=== PATIENT | male | born 2000 | race Caucasian/White ===

== ENCOUNTER 2019-02-07 00:54 | Emergency (ER) | payer BC ==
--- NOTE | 2019-02-07 01:15 | ED ---
Substance Abuse/Use - HPI Summary HPI Summary: The pt is a 18 yr old male [place] [facility] [place]/o EtOH abuse beginning several hours [employer]. Pt states that he was drinking at a fraternity green party in [facility]. He notes that he is a [employer] student. LEVEL 5 CAVEAT. Full Hx unobtainable due to pt being intoxicated. - History Of Current Complaint Chief Complaint: EDSubstanceAbuse Stated Complaint: ETOH PER EMS Hx Obtained From: Patient Hx From Patient Unobtainable Due To: Other - LEVEL 5 CAVEAT. Pt is unable to provide full Hx due to alcohol intoxication. Onset/Duration of Drug/ETOH Abuse: Hours Ingestion History: Type/Name Of Drug - EtOH Overdose Characteristics: Oral Aggravating Factor(s): Nothing Alleviating Factor(s): Nothing - Allergies/Home Medications Allergies/Adverse Reactions: Allergies Allergy/AdvReac Type Severity Reaction Status Date / Time No Known Allergies Allergy Verified 02/07/19 02:34 Home Medications: Home Medications NK [No Home Medications Reported] 02/07/19 [History Confirmed 02/07/19] PMH/Surg Hx/FS Hx/Imm Hx Sensory History: Denies: Hx Legally Blind, Hx Deafness Opthamlomology History: Denies: Hx Legally Blind EENT History: Denies: Hx Deafness - Surgical History Surgical History: None Surgery Procedure, Year, and Place: none Infectious Disease History: No Infectious Disease History: Denies: Traveled Outside the [place] in Last 30 Days - Family History Family History: LEVEL 5 CAVEAT. Pt is unable to provide full Hx due to alcohol intoxication. - Social History Occupation: Student Lives: Dormitory/Roommates Alcohol Use: Occasionally Review of Systems Constitutional: Other - intoxicated All Other Systems Reviewed And Are Negative: No - Comments Additional Review of Systems Comments: LEVEL 5 CAVEAT. Pt is unable to provide full Hx due to alcohol intoxication. Physical Exam - Summary Physical Exam Summary: Appearance: Well-appearing, Well-nourished, lying in bed comfortable, appears mildly intoxicated Skin: Warm, dry, no obvious rash Eyes: sclera anicteric, no conjunctival pallor ENT: mucous membranes moist Neck: deferred Respiratory: No signs of respiratory distress Cardiovascular: Appears well perfused, pulses are nml Abdomen: deferred Musculoskeletal: Moving all 4 extremities without obvious discomfort, no signs of trauma Neurological: Awake and alert, mentation is normal, speech is fluent and appropriate, answers questions appropriately. Psychiatric: affect is normal, does not appear anxious or depressed Triage Information Reviewed: Yes Vital Signs On Initial Exam: Initial Vitals Temp Pulse Resp BP Pulse Ox 97.3 F 55 14 103/61 99 02/07/19 00:58 02/07/19 00:58 02/07/19 00:58 02/07/19 00:58 02/07/19 00:58 Vital Signs Reviewed: Yes Completion Of Physical Exam Limited Due To: Level 5 - LEVEL 5 CAVEAT. Pt is unable to provide full Hx due to alcohol intoxication. Diagnostics - Vital Signs Vital Signs Temp Pulse Resp BP Pulse Ox 02/07/19 00:58 97.3 F 55 14 103/61 99 - Laboratory Lab Statement: Any lab studies that have been ordered have been reviewed, and results considered in the medical decision making process. Course/Dx - Diagnoses Provider Diagnoses: Alcohol intoxication Discharge ED - Sign-Out/Discharge Documenting (check all that apply): Patient Departure Patient Received Moderate/Deep Sedation with Procedure: No - Discharge Plan Condition: Improved Disposition: HOME Patient Education Materials: Alcohol Intoxication (ED), Abuse of Alcohol (ED) Referrals: [facility] [Outside] - If Needed - Billing Disposition and Condition Condition: IMPROVED Disposition: Home - Attestation Statements Document Initiated by Mica: Yes Documenting Scribe: Tejas Hall Provider For Whom Mica is Documenting (Include Credential): Albert Lay MD Scribe Attestation: Tejas Garcia, scribed for Albert Lay MD on 02/07/19 at 0540. Scribe Documentation Reviewed: Yes Provider Attestation: The documentation as recorded by the Tejas zaidi accurately reflects the service I personally performed and the decisions made by me, Albert Lay MD Status of Scribe Document: Viewed
[2019-02-07 05:00] VITALS: BP 121/78
== END 2019-02-07 05:00 | disposition home or self-care (01) ==
LOC: ED 00:54
DX: F10.129 Alcohol abuse with intoxication, unspecified (principal); Y90.6 Blood alcohol level of 120-199 mg/100 ml
CPT/HCPCS: 36415; 80320; 99283; G0480